=== PATIENT | male | born 1950 | race Caucasian/White ===

== ENCOUNTER 2017-07-01 05:39 | Day surgery (SDC) | payer OTHER, MEDICARE ==
[~2017-07-01] VITALS: Ht 180.3 cm; Wt 111.1 kg
[~2017-07-01 05:39] MED LIST: ASPI81CH PO; ATOR20 PO; Advil Pm Liqui1 EACH PO; HYDCHL25 PO; LISI20 PO; METO25ER PO; MINO100 PO; NICO21TP
== END 2017-07-01 17:15 | disposition home or self-care (01) ==
LOC: ORSCMMR 05:39 → ORD 07:30 → ORSCMMR 07:30
PROVIDERS: Surgery
PROC: 06BY0ZC Excision of Hemorrhoidal Plexus, Open Approach (ICD-10-PCS; principal; 2017-07-01 09:45)
PROC: 0DJD8ZZ Inspection of Lower Intestinal Tract, Via Natural or Artificial Opening Endoscopic (ICD-10-PCS; principal; 2017-07-01 09:45)
DX: K64.8 Other hemorrhoids (principal); Z86.010 Personal history of colon polyps; K64.4 Residual hemorrhoidal skin tags; I10 Essential (primary) hypertension; I25.10 Atherosclerotic heart disease of native coronary artery without angina pectoris; I25.2 Old myocardial infarction; G47.33 Obstructive sleep apnea (adult) (pediatric); F17.210 Nicotine dependence, cigarettes, uncomplicated; Z79.899 Other long term (current) drug therapy; Z79.82 Long term (current) use of aspirin; E66.9 Obesity, unspecified; Z68.34 Body mass index [BMI] 34.0-34.9, adult
CPT/HCPCS: 88304; J1100; J2250; J2405; J3010; J7120